=== PATIENT | female | born 1990 | race Caucasian/White ===

== ENCOUNTER 2025-04-26 15:11 | Outpatient (AMB) | payer BC, SELFPAY ==
--- NOTE | 2025-04-26 15:18 | A.OFFVIS_ITS ---
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 She has a 6-year-old daughter for whom she has joint custody. In the last 2 years, she has noted periods of chest pain, accelerated heart rate and almost daily episodes of lightheadedness and tingling in the hands and feet that increases with exercise. Her hands are also cold all the time. She gets some joint pains as well. She has been seen by rheumatology in the past with negative workup including lupus AUBREE and possibly Lyme disease. Recently she had a thyroid profile which was also unremarkable. She sleeps fairly well. She has no orthostatic hypotension. She exercises on an elliptical. She had a brain MRI in January 2025 which was normal. [facility] Medical History (Updated 04/26/25 @ 15:48 by Jean Carlos Lainez MD) Numbness and tingling Rubella non-immune status, antepartum COVID Family History (Updated 02/07/25 @ 20:38 by Fatimah Tello MA) Mother Thyroid disease Hypertension Sister PCOS (polycystic ovarian syndrome) Paternal Grandmother Lupus (systemic lupus erythematosus) Paternal Grandfather Heart attack Review of Systems Const Details: ?Sleep Difficulty getting to sleep?denies.?Difficulty maintaining sleep?denies?.?Urge to move legs?denies.?Teeth grinding?denies.?Shouting or Kicking during sleep ?denies.?Abnormal behavior during sleep?denies.?Excessive sleep?denies.?Snoring ?denies.?Daytime sleepiness?denies. ? General/Constitutional Change in appetite?denies.?Chills?denies.?Fatigue?denies.?Fever?denies.?Weight gain?denies.?Weight loss?denies. ? Ophthalmologic Blurred vision?denies.?Diminished visual acuity?denies. ? ENT Stuffiness?denies.?Decreased hearing?denies.?Dry mouth?denies.?Ear pain ?denies.?Nosebleed?denies.?Ringing in the ears?denies.?Sinus pain?denies.?Sore throat?denies.?Swollen glands?denies. ? Endocrine Cold intolerance?denies.?Excessive thirst?denies.?Frequent urination?denies.? Heat intolerance?denies. ? Respiratory Shortness of breath?denies.?Chest pain?denies.?Cough?denies. ? Breast Breast lump?denies.?Nipple discharge?denies. ? Cardiovascular Chest pain at rest?denies.?Chest pain with exertion?denies.?Claudication ?denies.?Dizziness?denies.?Fluid accumulation in the legs?denies.?Irregular heartbeat?denies.?Palpitations?denies. ? Gastrointestinal Abdominal pain?denies.?Constipation?denies.?Diarrhea?denies.?Difficulty swallowing?denies.?Heartburn?denies.?Nausea?denies.?Rectal bleeding?denies. ? Hematology Easy bruising?denies.?Prolonged bleeding?denies. ? Genitourinary Frequent urination?denies.?Urgency?denies.?Incontinence?denies.?Erectile Dysfunction?denies. ? Musculoskeletal Neck pain?denies.?Back pain?denies.?Muscle aches?denies.?Painful joints ?denies.?Sciatica?denies.?Weakness?denies. ? Podiatric Difficulty walking?denies.?Foot numbness?denies. ? Neurologic Difficulty swallowing?denies.?Balance difficulty?denies.?Coordination?normal.? Difficulty speaking?denies.?Dizziness?denies.?Fainting?denies.?Gait abnormality ?denies.?Headache?denies.?Loss of strength?denies.?Loss of use of extremity ?denies.?Low back pain?denies.?Memory loss?denies.?Seizures?denies.?Tics ?denies.?Tingling/Numbness?denies.?Transient loss of vision?denies.?Tremor ?denies. ? Psychiatric Anxiety?denies.?Auditory/visual hallucinations?denies.?Delusions?denies.? Depressed mood?denies.?Stressors?denies.?Substance abuse?denies.?Suicidal thoughts?denies. Physical Exam Neuro Other: Neurological Abnormal neurological findings:??none.? Mental Status:?alert and oriented X 3,?Normal attention, orientation, memory and affect.? Cranial Nerves:?Pupils are equal, round and reactive to light. Fundoscopy shows normal disc bilaterally. External occular muscles are intact. Visual rayo are full, no ptosis. Face is symmetrical, no facial weakness or droop. Facial sensations are normal. Tongue protrudes in midline. Palate elevates symmetrically. Shoulder shrugging is normal..? Motor Examination:?Normal muscle tone, bulk and strength,?No atrophy or fasciculations,?No drift of the extended upper extremities,?Deep tendon reflexes are 2+?,?Plantars are flexor?.? Motor Strength:?Proximal Muscles (out of 5):5Distal Muscles (out of 5):5Neck Flexors (out of 5):5Neck Extensors (out of 5):5Deltoid (out of 5):5Biceps (out of 5):5Triceps (out of 5):5Serratus Anterior (out of 5):5Wrist Extensors (out of 5):5APB (out of 5):5Finger Spread (out of 5):5Ileopsoas (out of 5):5Quadriceps (out of 5):5Hamstrings (out of 5):5Tibialis Anterior (out of 5):5Peronei (out of 5):5EDB (out of 5):5Gastrocnemius (out of 5):5Straight Leg Raising:?90 degrees.? Sensory Exam:?Normal light touch, temperature, pinprick, vibration and joint- position sensations?,?Rhomberg sign is absent.? Coordination:?no ataxia,?no titubation,?dgrlla-dc-[id number], hsfp-[id number]-drcm test and rapid alternating movements were normal.? Gait Exam:?Within normal limits.? Cerebellar Signs:?Uusxmn-go-mhhp and lhre-vy-zkhx is normal,?no dysdiadochokinesia?.? Extrapyramidal System:?No tremor, rigidity with normal facial expressions,?No bradykinesia, no bradyphrenia. Normal arm swing and posture. No propulsion or retropulsion.? Speech:?Normal,?no dysphasia or dysarthria..? Mini Mental Status Exam Level of Consciousness:?Alert.? Orientation:?Knows correct year, month, date, day and season,?Knows correct city, county and state. Knows correct location and floor.? Registration:?Able to register 3 objects.? Attention:?Serial 7's performed accurately.? Recall:?Able to recall 3 out of 3 objects.? Language:?Normal spontaneous speech, fluency, repetition,naming, comprehension, reading and writing.? Total Score:?30/30.? General Examination GENERAL APPEARANCE:?normal,?in no acute distress.? HEAD:?normocephalic,?atraumatic.? EYES:?sclera non-icteric,?conjunctiva clear.? EARS:?auditory canal clear,?tympanic membrane intact, clear.? NOSE:?no lesions.? ORAL CAVITY:?gums normal,?mucosa moist,?no lesions.? THROAT:?clear.? NECK/THYROID:?no cervical lymphadenopathy,?thyroid normal,?neck supple, full range of motion,?no carotid bruit.? SKIN:?no rashes,?no significant birthmarks.? HEART:?S1, S2 normal,?no murmurs.? LUNGS:?clear anteriorly and posteriorly.? CHEST:?no gross rib deformity,?clear to auscultation.? BACK:?normal exam of spine.? EXTREMITIES:?no edema.? PERIPHERAL PULSES:?normal.? PSYCH:?alert, oriented,?cognitive function intact,?cooperative with exam.? Assessment & Plan Assessment & Plan (1) Numbness and tingling: Code(s): R20.0 - Anesthesia of skin; R20.2 - Paresthesia of skin Category: Medical (2) Sensory neuropathy: Code(s): G62.9 - Polyneuropathy, unspecified Category: Medical Plan Multiple subjective symptoms of dizziness tingling and cold feeling in the hands and frequent lightheadedness for 2 years with a normal neurological examination. Diagnostic consideration besides anxiety include POTS, Lyme disease and hyperthyroidism. TSH was normal. Lyme titers are not available. Brain MRI was already done and is normal. Lupus and AUBREE are negative. We will proceed with nerve conduction EMG studies of upper and lower extremities Orders: Orders NE nerve conduction velocity Today G62.9 - Polyneuropathy, unspecified, R20.0 - Anesthesia of skin, R20.2 - Paresthesia of skin NE electromyogram (EMG) Today G62.9 - Polyneuropathy, unspecified, R20.0 - Anesthesia of skin, R20.2 - Paresthesia of skin Coding Level of Care Code New Pt Level 5 (16576) Diagnoses Numbness and tingling R20.0; R20.2 Sensory neuropathy G62.9
--- OUTSIDE RECORDS SUMMARY | 2025-04-26 17:39 | XMS_ITS | Clinical Summary ---
Author Organization [address] [place] [address] Address [address] [place] [address] Phone Care Team Providers Care Rn Allergy Name Role Phone Areli Witt MD Primary Care Provider [phone] Allergies Active Allergy Reactions Criticality Noted Date Comments Mold 03/12/2022 Other 04/14/2025 Seasonal allergies Medications cyanocobalamin (VITAMIN B-12) 250 mcg tablet Take 1 tablet (250 mcg total) by mouth 1 (one) time each day. Active ascorbic acid (VITAMIN C) 500 mg tablet Take 1 tablet (500 mg total) by mouth 1 (one) time each day. Active cholecalcifero l (VITAMIN D-3) 50 mcg (2,000 unit) tablet TAKE ONE TABLET BY MOUTH EVERY DAY 30 tablet 2 5 Active Additional Information Patient not taking.Reported on 04/14/2025 cetirizine (ZyrTEC) 10 mg tablet Take 1 tablet (10 mg total) by mouth 1 (one) time each day. 90 tablet 1 5 Active Rox 0.35 mg tablet Take 1 tablet (0.35 mg total) by mouth 1 (one) time each day. 28 tablet 2 5 Active Rox 0.35 mg tablet Take 1 tablet (0.35 mg total) by mouth 1 (one) time each day. 04/20/20 25 Discontin ued(Reord er) cetirizine (ZyrTEC) 10 mg tablet TAKE ONE TABLET BY MOUTH EVERY DAY 90 tablet 5 04/14/20 25 Discontin ued(Reord er) Active Problems Problem Noted Date Diagnosed Date COVID 07/13/2022 Overview (06/24/2024): Positive home covid test 07/13/22. Rubella non-immune status, antepartum 10/12/2017 Overview (06/24/2024): 10/09/17 offer rubella vaccine Encounters Date Type Department Care Team Description 04/14/2025 8:30 AM EDT Office Visit Adult Medicine [address] [phone] Areli Witt MD Other fatigue (Primary Dx); Foul smelling urine; Easy bruising; Screen for STD (sexually transmitted disease) from Last 3 Months Immunizations Name Administration Dates Next Due Tdap Tetanus diptheria acell ular pertussis (Boostrix; Adacel) 7yo and older 02/26/2018,03/15/1996 Surgical History Surgery Date Site/Laterality Comments APPENDECTOMY 06/2005 PROCEDURE: HISTORICAL APPENDECTOMY TONSILLECTOMY 07/2005 PROCEDURE: HISTORICAL TONSILLECTOMY Medical History Medical History Date Comments Migraines DX:Migraines Anxiety DX:Anxiety Family History Medical History Relation Name Comments No Known Problems Brother Healthy No Known Problems Father Unknown Hypertension Mother Thyroid disease Mother Breast cancer Other mat cousin's l ate 40's early 50's Heart attack Paternal Grandfather 50's Other: Lupus Paternal Grandmother Other: PCOS Sister Colon cancer Neg Hx Ovarian cancer Neg Hx Pancreatic cancer Neg Hx Prostate cancer Neg Hx Uterine cancer Neg Hx Relation Name Status Comments Brother Alive Father Alive Maternal Grandfather Maternal Grandmother Mother Alive Other Alive Paternal Grandfather Paternal Grandmother Sister Alive Social History Tobacco Use Types Packs/Day Years Used Date Smoking Tobacco: Never Passive Smoke Exposure: Never Smokeless Tobacco: Never Alcohol Use Standard Drinks/Week Comments Yes 0 (1 standard drink = 0.6 oz pur e alcohol) Comments No Sex and Gender Information Value Date Recorded Sex Assigned at Not on file Legal Sex Female 8:54 AM EST Gender Identity Not on file Sexual Orientation Not on file Obstetrics History Last Filed Vital Signs Vital Sign Reading Time Taken Comments Blood Pressure 104/68 04/14/2025 8:30 AM EDT Pulse 74 04/14/2025 8:30 AM EDT Temperature 36.6 C (97.8 F) 04/14/2025 8:30 AM EDT Respiratory Rate 14 04/14/2025 8:30 AM EDT Oxygen Saturation 98% 04/14/2025 8:30 AM EDT Inhaled Oxygen Concentration - - Weight 69.4 kg (153 lb) 04/14/2025 8:30 AM EDT Height 170.2 cm (5' 7 ) 04/14/2025 8:30 AM EDT Body Mass Index 23.96 04/14/2025 8:30 AM EDT Plan of Treatment Upcoming Encounters Date Type Department Care Team (Late st Contact Info) Description 08/09/2025 8:45 AM EST Office Visit Adult Medicine [address] [phone] Areli Witt MD [address] [place] [address] Health Maintenance Due Date Last Done Comments Hepatitis B Vaccines (1 of 3 - 19+ 3-dose series) 2010 Social Influencers of Health Screening 07/06/2022 Depression Screening 08/03/2024 COVID-19 Vaccine (3 - 2024-2 6 season) 2025 01/20/2021, 12/30/2020 Influenza Vaccine (#1) 2025 DTaP,Tdap,and Td Vaccines (2 - Td or Tdap) 02/27/2028 02/26/2018, 03/15/1996 Cholesterol Screening (Lipid Panel) 10/27/2028 10/28/2023 Cervical Cancer Screening: HPV 04/25/2029 04/25/2024 RSV Immunization Adult Patients (1 - 1-dose 75+ series) 2066 HIV Screening Completed 04/14/2025, 04/01/2023 Hepatitis C Screening Completed 04/14/2025 , 04/01/2023 HIB Vaccines Aged Out No longer eligi ble based on patient's age to complete this topic HPV Vaccines Aged Out No longer eligi ble based on patient's age to complete this topic Hepatitis A Vaccines Aged Out No long er eligible based on patient's age to complete this topic IPV Vaccines Aged Out No longer eligi ble based on patient's age to complete this topic MMR Vaccines Aged Out No longer eligi ble based on patient's age to complete this topic Meningococcal ACWY Vaccine Aged Out N o longer eligible based on patient's age to complete this topic Meningococcal B Vaccine Aged Out No l onger eligible based on patient's age to complete this topic Pneumococcal Vaccine: Pediatrics (0 to 5 Years) and At-Risk Patients (6 to 49 Years) Aged Out No longer eligible b ased on patient's age to complete this topic RSV Immunization Patients Under 20 months Aged Out No longer eligible b ased on patient's age to complete this topic Varicella Vaccines Aged Out No longer eligible based on patient's age to complete this topic Procedures Procedure Name Priority Date/Time Associated Diagnosis Comments ELAM URINE CULTURE TUBE Routine 04/14/20 9:34 AM EDT Foul smelling urine CHLAMYDIA TRACHOMATIS AND NEISSERIA GONORRHOEAE PCR Routine 04/14/2025 9:29 AM EDT Screen for STD (sexually transmitted disease) CBC WITH AUTO DIFFERENTIAL Routine 04/14/2025 9:26 AM EDT Other fatigue URINALYSIS WITH REFLEX MICROSCOPIC AND CULTURE Routine 04/14/2025 9:26 AM EDT Foul smelling urine CBC AND DIFFERENTIAL Routine 04/14/2025 9:26 AM EDT Other fatigue COMPREHENSIVE METABOLIC PANEL Routine 04/14/2025 9:26 AM EDT Other fatigue VITAMIN D 25 HYDROXY Routine 04/14/2025 9:26 AM EDT Other fatigue THYROID STIMULATING HORMONE WITH REFLEX TO FREE T4 AND FREE T3 Routine 04/14/2025 9:26 AM EDT Other fatigue VITAMIN B12 AND FOLATE Routine 9:26 AM EDT Other fatigue IRON AND TIBC Routine 04/14/2025 9:26 AM EDT Other fatigue FERRITIN Routine 04/14/2025 9:26 AM EDT Other fatigue URINALYSIS WITH REFLEX MICROSCOPIC AND CULTURE Routine 04/14/2025 9:26 AM EDT Foul smelling urine TREPONEMA PALLIDUM ANTIBODY WITH REFLEX TO RPR AND PARTICLE AGGLUTINATION Routine 04/14/2025 9:26 AM EDT Screen for STD (sexually transmitted disease) HIV 1, 2 ANTIBODY, P24 ANTIGEN WITH REFLEX TO DIFFERENTIATION Routine 04/14/2025 9:26 AM EDT Screen for STD (sexually transmitted disease) HEPATITIS C ANTIBODY Routine 04/14/2025 9:26 AM EDT Screen for STD (sexually transmitted disease) PROTHROMBIN TIME WITH INR Routine 04/14/2025 9:26 AM EDT Easy bruising ACTIVATED PARTIAL THROMBOPLASTIN TIME Routine 04/14/2025 9:26 AM EDT Easy bruising HM HPV Routine 04/25/2024 LIPID PANEL Routine 10/28/2023 from Last 3 Months or Most Recently Relevant to Health Maintenance Results * Elam urine culture tube (04/14/2025 9:34 AM EDT) Extra Tube Hold for add-ons. 04/14/2025 11:01 AM EDT [facility] Comment:Auto resulted. Urine Urine specimen obtained by clean catch procedure / Unknown Non-blood Collection / Unknown 04/14/2025 9:34 AM EDT 04/14/2025 9:34 AM EDT us Areli Witt MD LAB URINE ORDERABLES Final Resul t [facility] [address] [place] [address], [place] [phone] * Chlamydia trachomatis and Neisseria gonorrhoeae molecular study (04/14/2025 9:29 AM EDT) [facility] Neisseria gonorrhoeae PCR Negative Negative LAB MOLECULAR DIAGNOSTICS METHOD 04/14/2025 12:39 PM EDT [facility] Chlamydia trachomatis PCR Negative Negative LAB MOLECULAR DIAGNOSTICS METHOD 04/14/2025 12:39 PM EDT [facility] Urine First stream urine specimen / Unknown Non-blood Collection / Unknown 04/14/2025 9:29 AM EDT 04/14/2025 9:29 AM EDT us Areli Witt MD LAB MICROBIOLOGY - GENERAL ORDER JOSIAH Final Result Performing Organization Address City/[facility]/ZIP Co de Phone Number [facility] [address] [place] [address], [place] [phone] * Hepatitis C antibody (04/14/2025 9:26 AM EDT) [facility] Hepatitis C Antibody Negative Negative LAB CHEMISTRY METHOD 04/14/2025 3:13 PM EDT [facility] Blood Venous blood specimen / Unknown Venipuncture / Unknown 04/14/2025 9:26 AM EDT 04/14/2025 9:26 AM EDT us Areli Witt MD LAB BLOOD ORDERABLES Final Resul t [facility] [address] [place] [address], [place] [phone] * HIV 1,2 antibody, p24 antigen with reflex to differentiation (04/14/2025 9:26 AM EDT) [facility] HIV Combo AB/AG Negative Negative LAB CHEMISTRY METHOD 04/14/2025 3:13 PM EDT [facility] Blood Venous blood specimen / Unknown Venipuncture / Unknown 04/14/2025 9:26 AM EDT 04/14/2025 9:26 AM EDT Narrative [facility] - 04/14/2025 3:13 PM EDT This assay is a 4th generation assay allowing for earlier detection of HIV infection by detecting the presence of the HIV-1 p24 antigen as well as the traditional antibodies to HIV type 1 (including group O) and type 2. Use of a 4th generation assay is the current CDC recommendation for HIV screening. us Areli Witt MD LAB BLOOD ORDERABLES Final Resul t [facility] [address] [place] [address], [place] [phone] * Urinalysis with reflex microscopic and culture (04/14/2025 9:26 AM EDT) Specific Cash Urine 1.004 1.003 - 1.030 LAB URINALYSIS - AUTOMATED METHOD 04/14/2025 10:32 AM [facility] pH, Urine 8.0 5.0 - 8.0 pH LAB URINALYSIS - AUTOMATED METHOD 04/14/2025 10:32 AM [facility] Leukocytes, Urine Negative Negative LAB URINALYSIS - AUTOMATED METHOD 04/14/2025 10:32 AM [facility] Nitrite, Urine Negative Negative LAB URINALYSIS - AUTOMATED METHOD 04/14/2025 10:32 AM [facility] Protein, Urine Negative <=Trace mg/dL LAB URINALYSIS - AUTOMATED METHOD 04/14/2025 10:32 AM [facility] Glucose, Urine Negative Negative mg/dL LAB URINALYSIS - AUTOMATED METHOD 04/14/2025 10:32 AM [facility] Ketones, Urine Negative Negative mg/dL LAB URINALYSIS - AUTOMATED METHOD 04/14/2025 10:32 AM [facility] Urobilinogen, Urine 0.2 0.2 - 1.0 mg/dL LAB URINALYSIS - AUTOMATED METHOD 04/14/2025 10:32 AM EDT [facility] Bilirubin, Urine Negative Negative LAB URINALYSIS - AUTOMATED METHOD 04/14/2025 10:32 AM EDT [facility] Blood, Urine Negative Negative LAB URINALYSIS - AUTOMATED METHOD 04/14/2025 10:32 AM EDT [facility] Urine Urine specimen obtained by clean catch procedure / Unknown Non-blood Collection / Unknown 04/14/2025 9:26 AM EDT 04/14/2025 9:26 AM EDT us Areli Witt MD LAB URINE ORDERABLES Final Resul t Performing Organization Address [facility]/ZIP Co de Phone Number [facility] [address] [place] [address], [place] [phone] * Treponema pallidum antibody with reflex to RPR and particle agglutination (04/14/2025 9:26 AM EDT) T. Pallidum Antibodies Negative Negative LAB CHEMISTRY METHOD 04/14/2025 2:45 PM EDT [facility] Blood Venous blood specimen / Unknown Venipuncture / Unknown 04/14/2025 9:26 AM EDT 04/14/2025 9:26 AM EDT us Areli Witt MD LAB BLOOD ORDERABLES Final Resul t Performing Organization Address City/[facility]/ZIP Co de Phone Number [facility] [address] [place] [address], [place] [phone] * Thyroid stimulating hormone with reflex to free t4 and free t3 (04/14/2025 9:26 AM EDT) TSH 0.63 0.40 - 4.00 mcIU/mL LAB CHEMISTRY METHOD 04/14/2025 2:34 PM EDT [facility] Blood Venous blood specimen / Unknown Venipuncture / Unknown 04/14/2025 9:26 AM EDT 04/14/2025 9:26 AM EDT us Areli Witt MD LAB BLOOD ORDERABLES Final Resul t Performing Organization Address [facility] de Phone Number [facility] [address] [place] [address], [place] [phone] * (ABNORMAL) Vitamin B12 and folate (04/14/2025 9:26 AM EDT) [facility] Vitamin B-12 362 250 - 900 pcg/mL LAB CHEMISTRY METHOD 04/14/2025 2:07 PM EDT [facility] Folate >20.0(H) 2.8 - 17.0 ng/ml LAB CHEMISTRY METHOD 04/14/2025 2:07 PM EDT [facility] Blood Venous blood specimen / Unknown Venipuncture / Unknown 04/14/2025 9:26 AM EDT 04/14/2025 9:26 AM EDT us Areli Witt MD LAB BLOOD ORDERABLES Final Resul t Performing Organization Address [facility] de Phone Number [facility] [address] [place] [address], [place] [phone] * (ABNORMAL) CBC auto differential (04/14/2025 9:26 AM EDT) [facility] WBC 4.7(L) 4.8 - 10.8 K/mcL LAB HEMETOLOGY METHOD 04/14/2025 10:34 AM EDT [facility] RBC 5.00(H) 3.80 - 4.80 M/mcL LAB HEMETOLOGY METHOD 04/14/2025 10:34 AM EDT [facility] Hemoglobin 14.1 11.5 - 16.0 g/dL LAB HEMETOLOGY METHOD 04/14/2025 10:34 AM [facility] Hematocrit 42.9 35.0 - 47.0 % LAB HEMETOLOGY METHOD 04/14/2025 10:34 AM [facility] MCV 86.5 79.0 - 98.0 FL LAB HEMETOLOGY METHOD 04/14/2025 10:34 AM [facility] MCH 28.4 27.0 - 32.0 pcg LAB HEMETOLOGY METHOD 04/14/2025 10:34 AM [facility] MCHC 32.9 32.0 - 37.0 g/dL LAB HEMETOLOGY METHOD 04/14/2025 10:34 AM [facility] RDW 12.3 11.0 - 15.0 % LAB HEMETOLOGY METHOD 04/14/2025 10:34 AM [facility] Platelets 266 130 - 400 K/mcL LAB HEMETOLOGY METHOD 04/14/2025 10:34 AM [facility] MPV 10.0 7.0 - 11.0 FL LAB HEMETOLOGY METHOD 04/14/2025 10:34 AM [facility] NRBC 0.0 <1.0 % LAB HEMETOLOGY METHOD 04/14/2025 10:34 AM [facility] NRBC Absolute 0.00 <0.10 K/mcL LAB HEMETOLOGY METHOD 04/14/2025 10:34 AM [facility] Neutrophils Relative 52.7 % LAB HEMETOLOGY METHOD 04/14/2025 10:34 AM [facility] Lymphocytes Relative 34.6 % LAB HEMETOLOGY METHOD 04/14/2025 10:34 AM [facility] Monocytes Relative 9.8 % LAB HEMETOLOGY METHOD 04/14/2025 10:34 AM [facility] Eosinophils Relative 1.9 % LAB HEMETOLOGY METHOD 04/14/2025 10:34 AM EDT [facility] Basophils Relative 0.6 % LAB HEMETOLOGY METHOD 04/14/2025 10:34 AM EDT [facility] Immature Granulocytes Relative 0.4 % LAB HEMETOLOGY METHOD 04/14/2025 10:34 AM EDT [facility] Neutrophils Absolute 2.46 1.50 - 7.00 K/mcL LAB HEMETOLOGY METHOD 04/14/2025 10:34 AM EDT [facility] Lymphocytes Absolute 1.62 1.00 - 5.00 K/mcL LAB HEMETOLOGY METHOD 04/14/2025 10:34 AM EDT [facility] Monocytes Absolute 0.46 0.20 - 1.00 K/mcL LAB HEMETOLOGY METHOD 04/14/2025 10:34 AM EDT [facility] Eosinophils Absolute 0.09 0.00 - 0.50 K/mcL LAB HEMETOLOGY METHOD 04/14/2025 10:34 AM EDT [facility] Basophils Absolute 0.03 0.00 - 0.20 K/mcL LAB HEMETOLOGY [facility] 04/14[facility]25 [facility] Immature Granulocytes Absolute 0.02 0.00 - 0.03 K/mcL LAB HEMETOLOGY METHOD 04/14/2025 10:34 AM EDT [facility] Blood Venous blood specimen / Unknown Venipuncture / Unknown 04/14/2025 9:26 AM EDT 04/14/2025 9:26 AM EDT us Areli Witt MD LAB BLOOD ORDERABLES Final Resul t [facility] [address] [place] [address], * Iron and TIBC (04/14/2025 9:26 AM EDT) Iron 120 40 - 150 mcg/dL LAB CHEMISTRY METHOD 04/14/2025 2:07 PM EDT [facility] TIBC 439 250 - 450 mcg/dL LAB CHEMISTRY METHOD 04/14/2025 2:07 PM EDT [facility] Iron Saturation 27 15 - 50 % LAB CHEMISTRY METHOD 04/14/2025 2:07 PM EDT [facility] Blood Venous blood specimen / Unknown Venipuncture / Unknown 04/14/2025 9:26 AM EDT 04/14/2025 9:26 AM EDT us Areli Witt MD LAB BLOOD ORDERABLES Final Resul t Performing Organization Address City/[facility]/ZIP Co de Phone Number [facility] [address] [place] [address], [place] [phone] * Vitamin D 25 hydroxy (04/14/2025 9:26 AM EDT) Vit D, 25-Hydroxy 30.0 30.0 - 80.0 ng/mL LAB CHEMISTRY METHOD 04/14/2025 2:33 PM EDT [facility] Blood Venous blood specimen / Unknown Venipuncture / Unknown 04/14/2025 9:26 AM EDT 04/14/2025 9:26 AM EDT us Areli Witt MD LAB BLOOD ORDERABLES Final Resul t [facility] [address] [place] [address], [place] [phone] * Activated partial thromboplastin time (04/14/2025 9:26 AM EDT) aPTT 32.0 24.1 - 39.3 sec LAB COAGULATION METHOD 04/14/2025 10:49 AM EDT [facility] Blood Venous blood specimen / Unknown Venipuncture / Unknown 04/14/2025 9:26 AM EDT 04/14/2025 9:26 AM EDT us Areli Witt MD LAB BLOOD ORDERABLES Final Resul t Performing Organization Address City/[facility]/ZIP Co de Phone Number [facility] [address] [place] [address], [place] [phone] * Prothrombin time with INR (04/14/2025 9:26 AM EDT) Protime 12.8 10.6 - 13.9 sec LAB COAGULATION METHOD 04/14/2025 10:49 AM EDT [facility] INR 1.0 LAB COAGULATION METHOD 04/14/2025 10:49 AM EDT [facility] Blood Venous blood specimen / Unknown Venipuncture / Unknown 04/14/2025 9:26 AM EDT 04/14/2025 9:26 AM EDT us Areli Witt MD LAB BLOOD ORDERABLES Final Resul t Performing Organization Address [facility]/ZIP Co de Phone Number [facility] [address] [place] [address], [place] [phone] * Ferritin (04/14/2025 9:26 AM EDT) Ferritin 26 8 - 252 ng/mL LAB CHEMISTRY METHOD 04/14/2025 2:07 PM EDT [facility] Blood Venous blood specimen / Unknown Venipuncture / Unknown 04/14/2025 9:26 AM EDT 04/14/2025 9:26 AM EDT us Areli Witt MD LAB BLOOD ORDERABLES Final Resul t Performing Organization Address City/[facility]/ZIP Co de Phone Number [facility] [address] [place] [address], [place] [phone] * (ABNORMAL) Comprehensive metabolic panel (04/14/2025 9:26 AM EDT) Sodium 138 133 - 145 mmol/L LAB CHEMISTRY METHOD 04/14/2025 2:07 PM [facility] Potassium 3.6 3.5 - 5.5 mmol/L LAB CHEMISTRY METHOD 04/14/2025 2:07 PM [facility] Chloride 104 96 - 110 mmol/L LAB CHEMISTRY METHOD 04/14/2025 2:07 PM [facility] CO2 28 21 - 32 mmol/L LAB CHEMISTRY METHOD 04/14/2025 2:07 PM [facility] Anion Gap 6 3 - 11 LAB CHEMISTRY METHOD 04/14/2025 2:07 PM [facility] Glucose 92 70 - 100 mg/dL LAB CHEMISTRY METHOD 04/14/2025 2:07 PM [facility] BUN 11 5 - 25 mg/dL LAB CHEMISTRY METHOD 04/14/2025 2:07 PM [facility] Creatinine 0.75 0.50 - 1.10 mg/dL LAB CHEMISTRY METHOD 04/14/2025 2:07 PM [facility] eGFR 107 >=60 mL/min/1. 73m2 LAB CHEMISTRY METHOD 04/14/2025 2:07 PM [facility] Comment:Calculation based on the Chronic Kidney Disease Epidemiology Collaboration (CKD-EPI) equation refit without adjustment for race. BUN/Creatinine Ratio 14.7 LAB CHEMISTRY METHOD 04/14/2025 2:07 PM [facility] Calcium 9.5 8.5 - 10.5 mg/dL LAB CHEMISTRY METHOD 04/14/2025 2:07 PM [facility] AST (SGOT) 8(L) 10 - 42 unit/L LAB CHEMISTRY METHOD 04/14/2025 2:07 PM [facility] ALT (SGPT) 19 10 - 60 unit/L LAB CHEMISTRY METHOD 04/14/2025 2:07 PM EDT [facility] Alkaline Phosphatase 55 42 - 121 unit/L LAB CHEMISTRY METHOD 04/14/2025 2:07 PM EDT [facility] Total Protein 7.8 6.0 - 8.0 g/dL LAB CHEMISTRY METHOD 04/14/2025 2:07 PM EDT [facility] Albumin 4.6 3.2 - 5.0 g/dL LAB CHEMISTRY METHOD 04/14/2025 2:07 PM EDT [facility] Total Bilirubin 0.9 0.0 - 1.4 mg/dL LAB CHEMISTRY METHOD 04/14/2025 2:07 PM EDT [facility] Blood Venous blood specimen / Unknown Venipuncture / Unknown 04/14/2025 9:26 AM EDT 04/14/2025 9:26 AM EDT Areli Witt MD LAB BLOOD ORDERABLES Final Resul t [facility] [address] [place] [address], [place] [phone] * Cervical Cancer Screening: HPV (04/25/2024) [facility] Cervical Cancer Screening: HPV Negatvive, Abstracted Suze Jiménez MD HEALTH MAINTENANCE Final Result * Lipid panel (10/28/2023) [facility] LDL/HDL Ratio 3 0 - 4 Triglycerides 55 0 - 150 mg/dL Cholesterol 157 0 - 200 mg/dL HDL 57 >=40 mg/dL LDL Cholesterol 89 0 - 100 mg/dL Blood Venous blood specimen / Unknown Suze Jiménez MD LAB BLOOD ORDERABLES Lucy l Result from Last 3 Months or Most Recently Relevant to Health Maintenance Insurance [facility] Care Teams Rn Allergy Relationship Specialty Start Date End Date Areli Witt MD [address] [place] [phone] PCP - General Internal Medicine 05/27/23
--- OUTSIDE RECORDS SUMMARY | 2025-04-26 17:39 | XMS_ITS | Clinical Summary ---
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
== END 2025-04-26 16:14 | disposition home or self-care (01) ==
LOC: HO.HSM 15:12
PROVIDERS: PCP Internal Medicine; Visit Provider Psychiatry & Neurology Neurology
DX: R20.0 Anesthesia of skin (principal); R20.2 Paresthesia of skin; G62.9 Polyneuropathy, unspecified
CPT/HCPCS: 99204

== ENCOUNTER 2025-05-31 13:05 | Outpatient (REF) | payer BC, SELFPAY ==
--- NOTE | 2025-05-31 14:00 | EMG_ITS ---
Chief complaint:?R20.0 Anesthesia of skin R20.2 Paresthesia of skin Reason for referral: Numbness and tingling Referred by:?Dr Lainez Procedure done: Bilateral upper and bilateral lower extremities NCS/EMG Impression: Normal motor and sensory nerve conduction velocities in the upper and lower extremities. Normal EMG of the right C5-T1 and right L4-S1 innervated muscles. Please see detailed neurophysiological report Coding: ? [id number] 2 extremities MTDD
--- OUTSIDE RECORDS SUMMARY | 2025-05-31 16:39 | XMS_ITS | Clinical Summary ---
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
--- OUTSIDE RECORDS SUMMARY | 2025-05-31 16:39 | XMS_ITS | Clinical Summary ---
Author Organization [address] [place] [address] Address [address] [place] [address] Phone Care Team Providers Care Visitor Service Assistant Name Role Phone Areli Witt MD Primary Care Provider [phone] Allergies Active Allergy Reactions Criticality Noted Date [...] each day. 90 tablet 1 5 Active norethindrone (Rox) 0.35 mg tablet Take 1 tablet (0.35 mg total) by mouth 1 (one) time each day. 84 tablet 5 Active Rox 0.35 mg tablet Take 1 tablet (0.35 mg total) by mouth 1 (one) time each day. 28 tablet 2 5 05/10/20 25 Discontin ued(Reord er) Active Problems Problem Noted Date Diagnosed Date COVID 07/13/2022 Overview (06/24/2024): Positive home covid test 07/13/22. Rubella non-immune status, antepartum 10/12/2017 Overview (06/24/2024): 10/09/17 offer rubella vaccine Encounters Date Type Department Care Team Description 04/14/2025 8:30 AM EDT Office Visit [address] [id number] Areli Witt MD Other fatigue (Primary Dx); Foul smelling urine; Easy bruising; Screen for STD (sexually transmitted disease) from Last 3 Months Immunizations Immunization Administration Dates Next Due Tdap Tetanus diptheria [...] 8:45 AM EST Office Visit Adult Medicine [address] [phone] Areli Witt MD [address] [place] [address] Health Maintenance Due Date Last Done Comments Hepatitis B Vaccines (1 of 3 - 19+ 3-dose series) 2010 HPV Vaccines (1 - 3-dose SCD M series) 2018 Social Influencers of Health Screening 07/06/2022 Depression [...] [facility] [address] [place] [address], * Chlamydia trachomatis and Neisseria gonorrhoeae molecular study (04/14/2025 9:29 AM EDT) [facility] Neisseria gonorrhoeae PCR Negative Negative LAB MOLECULAR [...] ORDER JOSIAH Final Result Performing Organization Address City/[facility]/ZIP Co de Phone Number [facility] [address] [place] [address], [place] [phone] * Hepatitis C antibody (04/14/2025 9:26 AM EDT) [facility] Hepatitis C Antibody Negative Negative LAB CHEMISTRY METHOD 04/14/2025 3:13 PM EDT [facility] Blood Venous blood specimen / Unknown Venipuncture / Unknown 04/14/2025 9:26 AM EDT 04/14/2025 9:26 AM EDT us Areli Witt MD LAB BLOOD ORDERABLES Final Resul t [facility] [address] [place] [address], [place] [phone] * HIV 1,2 antibody, p24 antigen with reflex to differentiation (04/14/2025 9:26 AM EDT) [facility] HIV Combo AB/AG Negative Negative LAB CHEMISTRY [...] [facility] [address] [place] [address], [place] [phone] * Urinalysis with reflex microscopic and culture (04/14/2025 9:26 AM EDT) Specific Dexter Urine 1.004 1.003 - 1.030 LAB URINALYSIS - AUTOMATED METHOD 04/14/2025 10:32 AM [facility] pH, Urine 8.0 5.0 - 8.0 pH LAB URINALYSIS - AUTOMATED METHOD 04/14/2025 10:32 AM [facility] Leukocytes, Urine Negative Negative LAB URINALYSIS - AUTOMATED METHOD 04/14/2025 10:32 AM [facility] Nitrite, Urine Negative Negative LAB URINALYSIS - AUTOMATED METHOD 04/14/2025 10:32 AM [facility] Protein, Urine Negative <=Trace mg/dL LAB URINALYSIS - AUTOMATED METHOD 04/14/2025 10:32 AM [facility] Glucose, Urine Negative Negative mg/dL LAB URINALYSIS - AUTOMATED METHOD 04/14/2025 10:32 AM [facility] Ketones, Urine Negative Negative mg/dL LAB URINALYSIS - AUTOMATED METHOD 04/14/2025 10:32 AM [facility] Urobilinogen, Urine 0.2 0.2 - 1.0 [...] ORDERABLES Final Resul t Performing Organization Address [facility]/ZIP Co de Phone Number [facility] [address] [place] [address], [place] [phone] * Treponema pallidum antibody with reflex to [...] ORDERABLES Final Resul t Performing Organization Address City/[facility]/ZIP Co de Phone Number [facility] [address] [place] [address], [place] [phone] * Thyroid stimulating hormone with reflex to [...] ORDERABLES Final Resul t Performing Organization Address [facility]/ZIP Co de Phone Number [facility] [address] [place] [address], [place] [phone] * (ABNORMAL) Vitamin B12 and folate (04/14/2025 9:26 AM EDT) [facility] Vitamin B-12 362 250 - 900 pcg/mL [...] ORDERABLES Final Resul t Performing Organization Address City/[facility]/ZIP Co de Phone Number [facility] [address] [place] [address], [place] [phone] * (ABNORMAL) CBC auto differential (04/14/2025 9:26 AM EDT) [facility] WBC 4.7(L) 4.8 - 10.8 K/[facility] HEMETOLOGY METHOD 04/14/2025 10:34 AM EDT [facility] RBC 5.00(H) 3.80 - 4.80 M/[facility] LAB HEMETOLOGY METHOD 04/14/2025 10:34 AM EDT [facility] Hemoglobin 14.1 11.5 - 16.0 g/dL LAB HEMETOLOGY METHOD 04/14/2025 10:34 AM EDT [facility] Hematocrit 42.9 35.0 - 47.0 % LAB HEMETOLOGY METHOD 04/14/2025 10:34 AM [facility] MCV 86.5 79.0 - 98.0 FL LAB HEMETOLOGY METHOD 04/14/2025 10:34 AM [facility] MCH 28.4 27.0 - 32.0 pcg LAB HEMETOLOGY METHOD 04/14/2025 10:34 AM [facility] MCHC 32.9 32.0 - 37.0 g/dL LAB HEMETOLOGY METHOD 04/14/2025 10:34 AM [facility] RDW 12.3 11.0 - 15.0 % LAB HEMETOLOGY METHOD 04/14/2025 10:34 AM [facility] Platelets 266 130 - 400 K/mcL LAB HEMETOLOGY METHOD 04/14/2025 10:34 AM [facility] MPV 10.0 7.0 - 11.0 FL LAB HEMETOLOGY METHOD 04/14/2025 10:34 AM [facility] NRBC 0.0 <1.0 % LAB HEMETOLOGY METHOD 04/14/2025 10:34 AM [facility] NRBC Absolute 0.00 <0.10 K/mcL LAB HEMETOLOGY METHOD 04/14/2025 10:34 AM [facility] Neutrophils Relative 52.7 % LAB HEMETOLOGY METHOD 04/14/2025 10:34 AM [facility] Lymphocytes Relative 34.6 % LAB HEMETOLOGY METHOD 04/14/2025 10:34 AM [facility] Monocytes Relative 9.8 % LAB HEMETOLOGY METHOD 04/14/2025 10:34 AM [facility] Eosinophils Relative 1.9 % LAB HEMETOLOGY METHOD 04/14/2025 10:34 AM [facility] Basophils Relative 0.6 % LAB HEMETOLOGY [...] [facility] Immature Granulocytes Absolute 0.02 0.00 - 0.03 K/mcL LAB HEMETOLOGY METHOD 04/14/2025 10:34 AM T [facility] Blood Venous blood specimen / Unknown Venipuncture / Unknown 04/14/2025 9:26 AM EDT 04/14/2025 9:26 AM EDT us Areli Witt MD LAB BLOOD ORDERABLES Final Resul t [facility] [address] [place] [address], * Iron and TIBC (04/14/2025 9:26 AM EDT) [facility] Signature Iron 120 40 - 150 mcg/dL LAB [...] ORDERABLES Final Resul t Performing Organization Address City/[facility]/ZIP Co de Phone Number [facility] [address] [place] [address], [place] [phone] * Vitamin D 25 hydroxy (04/14/2025 9:26 [...] [facility] [address] [place] [address], [place] [phone] * Activated partial thromboplastin time (04/14/2025 9:26 AM EDT) aPTT 32.0 24.1 - 39.3 sec LAB COAGULATION METHOD 04/14/2025 10:49 AM EDT [facility] Blood Venous blood specimen / Unknown Venipuncture / Unknown 04/14/2025 9:26 AM EDT 04/14/2025 9:26 AM EDT us Areli Witt MD LAB BLOOD ORDERABLES Final Resul t Performing Organization Address City/[facility]/ZIP Co de Phone Number [facility] [address] [place] [address], [place] [phone] * Prothrombin time with INR (04/14/2025 9:26 AM EDT) [facility] Protime 12.8 10.6 - 13.9 sec LAB [...] ORDERABLES Final Resul t Performing Organization Address [facility] Co de Phone Number [facility] [address] [place] [address], [place] [phone] * Ferritin (04/14/2025 9:26 AM EDT) [facility] Ferritin 26 8 - 252 ng/mL LAB CHEMISTRY METHOD 04/14/2025 2:07 PM EDT [facility] Blood Venous blood specimen / Unknown Venipuncture / Unknown 04/14/2025 9:26 AM EDT 04/14/2025 9:26 AM EDT us Areli Witt MD LAB BLOOD ORDERABLES Final Resul t Performing Organization Address City/[facility]/ZIP Co de Phone Number [facility] [address] [place] [address], [place] [phone] * (ABNORMAL) Comprehensive metabolic panel (04/14/2025 9:26 AM EDT) Sodium 138 133 - 145 mmol/L LAB CHEMISTRY METHOD 04/14/2025 2:07 PM [facility] Potassium 3.6 3.5 - 5.5 mmol/L LAB CHEMISTRY METHOD 04/14/2025 2:07 PM [facility] Chloride 104 96 - 110 mmol/L LAB CHEMISTRY METHOD 04/14/2025 2:07 PM [facility] CO2 28 21 - 32 mmol/L LAB CHEMISTRY METHOD 04/14/2025 2:07 PM [facility] Anion Gap 6 3 - 11 LAB CHEMISTRY METHOD 04/14/2025 2:07 PM [facility] Glucose 92 70 - 100 mg/dL LAB CHEMISTRY METHOD 04/14/2025 2:07 PM [facility] BUN 11 5 - 25 mg/dL LAB CHEMISTRY METHOD 04/14/2025 2:07 PM [facility] Creatinine 0.75 0.50 - 1.10 mg/dL LAB CHEMISTRY METHOD 04/14/2025 2:07 PM [facility] eGFR 107 >=60 mL/min/1. 73m2 LAB CHEMISTRY METHOD 04/14/2025 2:07 PM [facility] Comment:Calculation based on the Chronic Kidney Disease Epidemiology Collaboration (CKD-EPI) equation refit without adjustment for race. BUN/Creatinine Ratio 14.7 LAB CHEMISTRY METHOD 04/14/2025 2:07 PM [facility] Calcium 9.5 8.5 - 10.5 mg/dL LAB CHEMISTRY METHOD 04/14/2025 2:07 PM [facility] AST (SGOT) 8(L) 10 - 42 unit/L LAB CHEMISTRY METHOD 04/14/2025 2:07 PM [facility] ALT (SGPT) 19 10 - 60 unit/L LAB CHEMISTRY METHOD 04/14/2025 2:07 PM [facility] Alkaline Phosphatase 55 42 - 121 [...] [facility] [address] [place] [address], [place] [phone] * Cervical Cancer Screening: HPV (04/25/2024) [facility] Cervical Cancer Screening: HPV Negatvive, Abstracted Historical Provider HEALTH MAINTENANCE Final Result * Lipid panel (10/28/2023) [facility] LDL/HDL Ratio 3 0 - 4 Triglycerides 55 0 - 150 mg/dL Cholesterol 157 0 - 200 mg/dL HDL 57 >=40 mg/dL LDL Cholesterol 89 0 - 100 mg/dL Blood Venous blood specimen / Unknown Historical Provider LAB BLOOD ORDERABLES Lucy l Result from Last 3 Months or Most Recently Relevant to Health Maintenance Insurance [facility] Care Teams Visitor Service Assistant Relationship Specialty Start Date End Date Areli Witt MD [address] [place] [phone] PCP - General Internal Medicine 05/27/23
== END 2025-05-31 13:06 | disposition home or self-care (01) ==
LOC: HO.NEURO 13:05
PROVIDERS: PCP Internal Medicine; Visit Provider Psychiatry & Neurology Neurology
DX: R20.0 Anesthesia of skin (principal); R20.2 Paresthesia of skin; G62.9 Polyneuropathy, unspecified
CPT/HCPCS: 95885; 95913

== ENCOUNTER → 2025-05-31 14:00 | Outpatient (BNV) | payer BC, SELFPAY | PROVIDERS: PCP Internal Medicine; Visit Provider Psychiatry & Neurology Neurology | DX: R20.0 Anesthesia of skin (principal) | CPT/HCPCS: 95886; 95913 ==